=== PATIENT | female | born 1955 | race Caucasian/White ===

== ENCOUNTER 2017-10-01 13:40 | Inpatient (IN) | payer OTHER ==
[~2017-10-01] VITALS: Ht 170.2 cm; Wt 88.5 kg
--- NOTE | ~2017-10-01 | EKG ---
[address] [address] ELECTROCARDIOGRAM REPORT Name: ADEFRANCIE Room #: 444-P ADM IN M.R.#: [id number] Admission: 10/01/17 Attend Phys: Omid Hanson MD Discharge: Date of : 55 Report #: [id number] THIS REPORT FOR: //name// [facility] ED Test Date: 2017-10-01 Test Time: 15:21:48 Pat Name: FRANCIE BOOKER Department: Room: 444 Gender: F Client Support Coordinator: Maryjane BROWN : 1955 Requested By: Joaquín Jaeger Order Number: [id number] MD: Elbert Michele Measurements Intervals [place] Rate: 68 P: 32 PA: 158 QRS: 33 QRSD: 161 T: 22 QT: 454 QTc: 483 Interpretive Statements Sinus rhythm Atrial premature complex Nonspecific intraventricular conduction delay No previous ECG available for comparison Electronically Signed On 10-02-2017 8:07:48 CABLE REPAIRER by Elbert Michele [email or web address] <ELECTRONICALLY SIGNED> By: Elbert Michele MD 10/02/17 0807 D: 01/1520 20 Elbert Michele MD /SEBAS
--- NOTE | ~2017-10-01 | O ---
[facility] [address] [place] [address] OPERATIVE REPORT Name: FRANCIE BOOKER Room #: 444-P ADM IN M.R.#: [id number] Admission: 10/01/17 Attend Phys: Omid Hanson MD Discharge: Date of : 55 Report #: [id number] THIS REPORT FOR: //name// CC: XIOMARA Hanson DATE OF SERVICE: 10/01/2017 SERVICE: Orthopedics. FACILITY: [facility] SURGEON: Tim Giblert M.D. ASSISTANTS: None. PREOPERATIVE DIAGNOSES: 1. Unstable right ankle fracture dislocation. 2. Status post previous open reduction and internal fixation, right ankle. 3. Closed left stable ankle fracture. POSTOPERATIVE DIAGNOSES: 1. Unstable right ankle fracture dislocation. 2. Status post previous open reduction and internal fixation, right ankle. 3. Closed left stable ankle fracture. PROCEDURE: Application of spanning external fixator, right ankle. COMPLICATIONS: None. DRAINS: None. SPECIMENS: None. ANESTHESIA TYPE: General. FINDINGS: The external fixator applied to the right ankle with stability confirmed on multiple planes of x-ray. HISTORY OF PRESENT ILLNESS: The patient is a 61-year-old female who is originally from the [facility], was here in [facility] for family reasons. She was walking up to her car to drive back home when she slipped on the ice and injured both ankles. She was diagnosed with a right ankle fracture dislocation and a nondisplaced left ankle fracture. I evaluated her myself in the Emergency Room and tried closed reduction of the right ankle, but this was highly unstable in the posterior direction. I could not keep it contained with [facility] [address] [place] [address] OPERATIVE REPORT Name: FRANCIE BOOKER Room #: 444-P ADM IN M.R.#: [id number] Admission: 10/01/17 Attend Phys: Omid Hanson MD Discharge: Date of : 55 Report #: [id number] a splint alone, and therefore, I explained to her and her that application of external fixator was the best option. Due to the severity of the dislocation, I felt that a staged approach was most appropriate to allow soft tissue rest so as to minimize the chance of complications when she does have definitive fixation. She will require potentially extensive dissection because she has prior hardware which will likely need to be removed in order to provide appropriate repair. Risks, benefits, alternatives and indication was therefore discussed with her. Risks include but are not limited to pain, bleeding, infection, injury to nerves or blood vessels, need for further surgery including revision as well as external fixator removal as well as complications related to anesthesia such as stroke, heart attack, pulmonary complications, thromboembolic disease and . Despite these risks, she wished to proceed. PROCEDURE IN DETAIL: After the right leg was correctly identified as the operative extremity, the patient was taken to the operating room, where general anesthesia was induced without complication. She was padded appropriately. A tourniquet was applied to the right thigh. Right lower extremity was prepped and draped in the standard sterile fashion. Time-out procedure was performed. An Esmarch was utilized and tourniquet was inflated to 250 mmHg. C-arm was used in multiple planes to assess the instability. The primary instability was directed posteriorly and medial to lateral was stable after closed reduction. Therefore, an external fixator design was created with the concept of delivering dlqxrchqb-pf-dlitvako directed stabilizing force on the talus. Two 5-mm half pins were drilled into the tibia in appropriate position and a clamp was placed and then using a cross-table lateral x-ray, the transcalcaneal pin was placed in a gnihnv-nt-mxbnbem fashion. Note that all pins were placed with skin abbey incision and then blunt dissection down to the bone. After the pin was placed, it appeared to be in a mechanically optimal position in the calcaneal tuberosity and so, I accepted this position and then placed the pin-to-bar clamps. The external fixator 8-frame construct was then drilled and then I held the fracture reduced under x-ray after assessing the stability and the optimal positioning of the frame. Then, we sequentially tightened all clamps. Final x-rays were taken while performing a dynamic assessment to ensure that there was no laxity posteriorly due to a problematic force vector with the frame, and it was, in fact, stable and so the final x-rays were taken and accepted. Sterile dressings were applied around the pin sites and then a well-padded posterior short-leg splint was placed to provide some additional soft tissue support in a fashion that will allow evaluation of the soft tissues for surgical planning purposes. The patient was awakened from anesthesia and taken to the recovery room in [address] [address] OPERATIVE REPORT Name: FRANCIE BOOKER Room #: 444-P [facility] IN M.R.#: [id number] Admission: 10/01/17 Attend Phys: Omid Hanson MD Discharge: Date of : 55 Report #: [id number] stable condition. There were no complications and all counts were recorded as correct. <ELECTRONICALLY SIGNED> By: Tim Gilbert MD 10/02/17 0715 [id number] Tim Gilbert MD /nt
[2017-10-01 13:40] VITALS: BP 121/73
[2017-10-01 19:50] VITALS: BP 130/51
[2017-10-01 22:45] VITALS: BP 129/72; BP 142/80
[2017-10-01 23:00] VITALS: BP 133/80
[2017-10-01 23:15] VITALS: BP 121/67
[2017-10-01] MEDS ORDERED: ANASTROZOLE1 MG PO (23:43)
[2017-10-01] MEDS ORDERED: CITALOPRAM HBR40 MG PO (23:43)
[2017-10-01] MEDS ORDERED: XANAX 0.5 MG0.5 MG PO (23:44)
[2017-10-01 23:45] VITALS: BP 139/77
[2017-10-01] MEDS ORDERED: LEVOTHYROXINE100 MC1 PO (23:45)
[2017-10-01] MEDS ORDERED: HYDROCHLOROTHIA25 M2 PO (23:46)
[2017-10-02 00:14] VITALS: BP 131/65
[2017-10-02 01:15] VITALS: BP 116/60
[2017-10-02 02:40] VITALS: BP 118/60
[2017-10-02 04:38] LABS: ABSOLUTE NEUTROPHILS 8.4 thou/uL (1.4-8.2); BASOPHILS 0.1 % (0.0-2.0); HEMATOCRIT 32.4 % (37.0-47.0); HEMOGLOBIN 10.7 gm/dL (12.0-15.0); LYMPHOCYTES 4.8 % (24.0-44.0); MCH 29.5 pg (26.0-34.0); MCHC 33.1 g/dL (28.0-37.0); MONOCYTES 1.7 % (1.0-8.0); PLATELET COUNT 292 thou/uL (150-400); POLYS 93.4 % (36.0-66.0); RBC 3.64 mil/uL (4.20-5.00); RDW 13.9 % (10.5-14.5); WBC 8.9 thou/uL (4.0-11.0)
[2017-10-02 04:57] LABS: CALCIUM 8.5 mg/dL (8.5-10.1); CREATININE 0.8 mg/dL (0.6-1.0); POTASSIUM 3.9 mmol/L (3.5-5.1)
[2017-10-02 05:07] LABS: APTT 28.5 Seconds (24.5-32.8); PROTIME 10.2 Seconds (9.3-11.4)
[2017-10-02 07:35] VITALS: BP 113/62
[2017-10-02 16:00] VITALS: BP 99/52
[2017-10-02 22:24] VITALS: BP 104/49
[2017-10-03 01:53] VITALS: BP 125/54
[2017-10-03 04:44] VITALS: BP 102/42
[2017-10-03 09:05] VITALS: BP 114/55
[2017-10-03] MEDS ORDERED: PEPCID20 MG PO (09:22)
[2017-10-03] MEDS ORDERED: MIRALAX17 GM PO (09:22)
[2017-10-03] MEDS ORDERED: NORCO 7.5-3251 EACH PO (09:22)
[2017-10-03] MEDS ORDERED: ASPIR 8181 MG PO (09:22)
[2017-10-03] MEDS ORDERED: COLACE 100 MG100 MG PO (09:22)
[2017-10-03 13:20] VITALS: BP 114/55
== END 2017-10-03 16:04 | disposition home or self-care (01) | DRG 503 ==
LOC: ER 13:40 → 4S 17:23 → TBACV 17:23 → EROBS 17:23 → TBACV 19:44 → 4S 19:50
PROVIDERS: Hospitalist; Nurse Practitioner
PROC: 0QSL05Z Reposition Right Tarsal with External Fixation Device, Open Approach (ICD-10-PCS; principal; 2017-10-01)
DX: S82.891A Other fracture of right lower leg, initial encounter for closed fracture (principal); E43 Unspecified severe protein-calorie malnutrition; S93.04XA Dislocation of right ankle joint, initial encounter; Z96.651 Presence of right artificial knee joint; W18.39XA Other fall on same level, initial encounter; E03.9 Hypothyroidism, unspecified; E78.5 Hyperlipidemia, unspecified; S82.62XA Displaced fracture of lateral malleolus of left fibula, initial encounter for closed fracture; Y93.89 Activity, other specified; Z88.1 Allergy status to other antibiotic agents; Z88.2 Allergy status to sulfonamides; Z88.8 Allergy status to other drugs, medicaments and biological substances; Y92.89 Other specified places as the place of occurrence of the external cause; Y99.8 Other external cause status; Z85.3 Personal history of malignant neoplasm of breast
CPT/HCPCS: 10195; 50101; 50386; 51597; 51598; 51793; 51826; 57091; 62110; 62900; 70005